=== PATIENT | male | born 1980 | race Caucasian/White ===

== ENCOUNTER 2021-03-14 10:27 | Emergency (ER) | payer BC ==
[~2021-03-14] VITALS: Ht 177.8 cm; Wt 95.0 kg
[~2021-03-14 10:27] MED LIST: ALBU6.7H9 INH
[2021-03-14 11:08] VITALS: BP 121/81
--- NOTE | 2021-03-14 11:29 | NUR ---
PA advised of patient status. Right clavicle X-Ray ordered. Also Clyde 5. Patient in lobby. Not driving, awaiting room.
[2021-03-14] MEDS ORDERED: ondansetron 4mg rapidly disintigrating tab PO ONE ×2 (11:30→13:00)
[2021-03-14] MEDS ORDERED: HYDROcodone/acetaminophen 5mg/325mg tablet PO ONE (11:30)
[2021-03-14] MEDS ORDERED: morphine 4 MG/ML inj SYRINge IM ONE ×2 (13:00→14:05)
[2021-03-14] MEDS ORDERED: HYDR-3965 PO (15:05)
[2021-03-14] MEDS ORDERED: ONDA4TAB6 PO (15:05)
[2021-03-15] MEDS ORDERED: HYDR-3972 PO (08:37)
== END 2021-03-14 16:10 | disposition home or self-care (01) ==
LOC: ER 10:28
DX: S42.011A Anterior displaced fracture of sternal end of right clavicle, initial encounter for closed fracture (principal); Z79.899 Other long term (current) drug therapy; V00.131A Fall from skateboard, initial encounter; Y93.89 Activity, other specified; Y92.89 Other specified places as the place of occurrence of the external cause; Y99.8 Other external cause status
CPT/HCPCS: 29125; 71046; 73000; 96372; 99284; J2270

== ENCOUNTER 2021-03-15 07:18 | Emergency (ER) | payer BC ==
[~2021-03-15 07:18] MED LIST changes: +HYDR-3965 PO; +ONDA4TAB6 PO
[2021-03-15 08:11] VITALS: BP 133/84
[2021-03-15] MEDS ORDERED: HYDR-3972 PO (08:37)
== END 2021-03-15 08:57 | disposition home or self-care (01) ==
LOC: ER 07:19
DX: S42.011D Anterior displaced fracture of sternal end of right clavicle, subsequent encounter for fracture with routine healing (principal); X58.XXXD Exposure to other specified factors, subsequent encounter
CPT/HCPCS: 99283